=== PATIENT | male | born 1950 | race Caucasian/White ===

== ENCOUNTER 2024-03-02 11:35 | Emergency (ER) | payer MEDICARE, OTHER, SELFPAY ==
[2024-03-02 11:51] VITALS: BP 97/68
[2024-03-02 12:00] VITALS: BMI 26.1
[2024-03-02 12:10] LABS: % Basophils 0.9 % (0-2); % Eosinophils 0.9 % (0-6); % Immature Granulocytes 0.2 % (0-0.5); % Lymphocytes 22.4 % (20.5-51.1); % Monocytes 10.5 % (1.7-9.3); % Neutrophils 65.1 % (42.2-75.2); Absolute Basophils 0.1 10^3/uL (0-0.2); Absolute Eosinophils 0.1 10^3/uL (0-0.7); Absolute Lymphocytes 1.5 10^3/uL (1.2-3.4); Absolute Monocytes 0.7 10^3/uL (0.1-0.6); Absolute Neutrophils 4.3 10^3/uL (1.4-6.5); Hematocrit 48.7 % (39.0-52.0); Hemoglobin 16.7 g/dL (13.0-18.0); Mean Corp Hgb Conc. 34.3 g/dL (33.0-37.0); Mean Corpuscular Hgb 30.8 pg (27.0-31.0); Mean Corpuscular Volume 89.7 fL (80.0-94.0); Mean Platelet Volume 9.2 fL (7.4-10.4); Nucleated Red Blood Cells % 0 % (-); Platelet Count 329 10^3/uL (130-400); Red Blood Cell Count 5.43 10^6/uL (4.70-6.10); Red Cell Dist. Width 12.5 % (11.5-14.5); White Blood Cell Count 6.6 10^3/uL (4.8-10.8)
[2024-03-02 12:23] LABS: ALT (SGPT) 20 U/L (0-50); AST (SGOT) 25 U/L (17-59); Albumin 4.3 g/dl (3.5-5.0); Alkaline Phosphatase 61 U/L (38-126); Blood Urea Nitrogen 21 mg/dl (9-20); Calcium 10.1 mg/dl (8.4-10.2); Carbon Dioxide 28 mmol/L (22-30); Chloride 106 mmol/L (98-107); Estimated Creatinine Clearance 77 ml/min; Glucose 91 mg/dl (70-99); Sodium 144 mmol/L (135-145); Total Bilirubin 0.8 mg/dl (0.2-1.3); Total Protein 7.3 g/dl (6.3-8.2); eGFR > 60.00
[2024-03-02 12:32] LABS: Troponin I < 0.012 ng/ml
[2024-03-02 12:38] VITALS: BP 124/77
--- NOTE | 2024-03-02 12:59 | ED.GENMED ---
History of Present Illness
General
Chief Complaint: Heart Rate Problem
Source: patient
Exam Limitations: none
Time Seen by Provider: 03/02/24 12:09
History of Present Illness
History of Present Illness:
74-year-old male who has a history of A-fib and presents stating that he was in A-fib. The patient states symptoms are about 3 hours ago. He does often check his heart rate on his cardiac phone monitor and this week was in sinus. Patient admits
that he had an ablation many years ago. He has not been on any anticoagulation. Patient denies chest pain but just feels a palpitations. No real shortness of breath. No leg swelling. No leg pain. States in the past he has never had to be
cardioverted and that he would convert with medications or on his own. No other excessive caffeine use. He has 1 alcohol drink a day.
Past History
Past History
ED Past Medical History: Arrthythmia (Atrial fibrillation)
ED Past Surgical History: Cardiac
Social History
Alcohol: Daily (1 beer or wine per day)
Living: with family
Phy Exam
Physical Exam
Physical Exam:
CONSTITUTIONAL Patient alert and oriented to person, place and time. Well-appearing. Vital signs reviewed.
HEAD atraumatic, normocephalic.
EYES eyelids normal to inspection, Extraocular muscles intact, Conjunctiva normal, Sclera normal.
NECK normal range of motion, Trachea midline, no jugular venous distention.
RESPIRATORY CHEST No respiratory distress noted, Chest expansion equal, Bilateral breath sounds clear.
CARDIOVASCULAR irregularly irregular and tachycardic, Heart sounds normal.
BACK normal inspection, no obvious deformities
UPPER EXTREMITY range of motion normal, Motor strength normal, no cyanosis, no edema.
LOWER EXTREMITY range of motion normal, Motor strength normal, no cyanosis, no edema.
NEURO Speech normal, No focal motor deficits, Eryn coma scale 15, Memory normal, Cranial Nerves intact to screening exam.
SKIN skin warm, dry, and normal in color.
Course
Orders/Labs/Results
Orders:
Orders
03/02/24 11:36
EKG [Electrocardiogram (*1)] Urgent
Reason for Study: Palpitations
EKG- Treatment ONCE
03/02/24 12:02
Complete Blood Count/With Diff Urgent
Comprehensive Metabolic Panel Urgent
Troponin I Urgent
03/02/24 12:32
Diltiazem 125 mg/125 ml Nss [Cardizem] 125 mg in 125 ml IV NOW
Initial dose in mg/hr, then titrate:: 5
Titrate to keep:: Heart rate 80-100 bpm
Titrate by mg/hr:: 5 mg/hr
Frequency of titrations (minutes):: 15
Maximum dose in mg/hr:: 15
Diltiazem HCl [Cardizem] 10 mg IV NOW STA
03/02/24 12:42
Electrocardiogram (*1) Urgent
Reason for Study: Palpitations
EKG- Treatment ONCE
Abnormal Lab Results
03/02/24
12:02
Absolute Monos (auto) 0.7 H 10^3/uL
(0.1-0.6)
Monocytes % 10.5 H %
(1.7-9.3)
BUN 21 H mg/dl
(9-20)
03/02/24 12:02
03/02/24 12:02
Vital Signs
Initial and Last Documented VS:
Initial Vital Signs
Temp Pulse Resp Pulse Ox
97.8 F 146 24 96
03/02/24 11:47 03/02/24 11:47 03/02/24 11:47 03/02/24 11:47
Last Documented Vital Signs
Temp Pulse Resp BP Pulse Ox
97.8 F 77 16 102/71 98
03/02/24 11:47 03/02/24 13:00 03/02/24 13:10 03/02/24 13:00 03/02/24 13:10
MDM/Problems Addressed
Differential Diagnosis Includes:
Electrolyte imbalance, anemia, hypothyroidism, atrial fibrillation
MDM/Problems Addressed:
Atrial fibrillation with RVR.
*Pulse Oximetry
Patient hypoxic: no
*EKG
Interpreted by ED Provider?: Yes
Interpretation: abnormal
Rate: tachycardiac
Rhythm: a-fib
[place]: left axis deviation
Ischemia: non-specific ST changes
*Documentation Billing Clerk Interpretation
Rate: tachycardiac
Interpretation: abnormal
Rhythm: a-fib
*Critical Care Note
Total Time (30-74mins, 75-104mins- exclusive of procedures): 35 minutes
Data Reviewed
Source: patient
Further Testing Considered But Not Given:
Considered D-dimer but no PE risk. Starting Eliquis regardless
Patient Management
Escalation/DeEscalation of care consider admission/obs:
Patient spontaneously broke to normal sinus rhythm. Will give him AV rate control as well as Eliquis. He will follow-up with his guide rail cleaner
ED Attending Note
-
Portions of this chart may have been created with voice recognition software.� Occasional wrong word or��sound alike� substitutions may have occurred due to the inherent limitations of voice recognition software.
Discharge Plan
Departure
Patient Disposition: Home (Routine Discharge)
Date of Disposition: 03/02/24
Time of Disposition: 13:19
Patient with high blood pressure during this ER visit?: No
Discharge Problem:
Atrial fibrillation with rapid ventricular response
Instructions: Atrial Fibrillation (DC)
Prescriptions:
New
Eliquis 5 mg tablet
5 mg PO BID Qty: 60 0RF
diltiazem HCl 120 mg capsule,extended release 24 hr
120 mg PO DAILY Qty: 30 0RF
No Action
cyclobenzaprine 10 MG tablet
10 mg PO HSPRN PRN (Reason: muscle spasms) Qty: 7 0RF
hydrocodone-acetaminophen 1 TABLET tablet
1 tab PO Q4HPRN PRN (Reason: severe pain) Qty: 12 0RF
prednisone 20 MG tablet
40 mg PO DAILY Qty: 8 0RF
amoxicillin-pot clavulanate 1 TABLET tablet
1 tab PO BID 10 Days Qty: 20 0RF
Referrals:
Last Walker MD [Family Provider] -
Activity Restrictions/Additional Instructions:
Please see your doctor or guide rail cleaner in the next 3 to 5 days for follow-up and reevaluation. Return immediately for lightheadedness, chest pain, shortness of breath, palpitations or any other concerns.
Interventions
Interventions:
*Risk Screen - Suicide Last Done: 03/02/24 11:47
*General Assessment Last Done: 03/02/24 11:47
*Neglect/Abuse Screening Last Done: 03/02/24 11:47
*ED COVID-19 Vaccine History Last Done: 03/02/24 12:01
ED- Cardiac Assessment Last Done: 03/02/24 12:01
ED- Pulmonary Assessment Last Done: 03/02/24 12:01
Discharge Date and Time
Print Language: MALAWIAN
[2024-03-02 13:00] VITALS: BP 102/71
[2024-03-02] MEDS: ELIQUIS 5 MG PO (13:27)
== END 2024-03-02 13:30 | disposition home or self-care (01) ==
LOC: EMR 11:35
PROVIDERS: EMERGENCY PHYSICIAN Emergency Medicine; FAMILY PHYSICIAN Internal Medicine
DX: I48.91 Unspecified atrial fibrillation (principal)
CPT/HCPCS: 99291; 80053; 84484; 85025; 93005

== ENCOUNTER 2024-03-25 13:02 | Emergency (ER) | payer MEDICARE, OTHER, SELFPAY ==
[2024-03-25 13:11] VITALS: BP 143/79
--- NOTE | 2024-03-25 14:42 | ED.GENMED ---
History of Present Illness
General
Chief Complaint: Musculo-Skeletal Complaint
Time Seen by Provider: 03/25/24 13:21
History of Present Illness
History of Present Illness:
4-year-old male with history of A-fib on Eliquis presents to the emergency department for evaluation of a left hand injury after a minor fall. He tripped and fell forward onto an outstretched hand. He does report that he had some discomfort to the
lateral aspect of the hand. Did strike his chin but denies any headache at this time and is not concerned about any potential head injury.
Past History
Past History
ED Past Medical History: Arrthythmia (Atrial fibrillation)
ED Past Surgical History: Cardiac
Social History
Alcohol: Daily (1 beer or wine per day)
Living: with family
Review of Systems
Review of Systems
Allergies reviewed?: Yes
All Other Systems: ROS reviewed and negative except as documented in HPI and ROS
Phy Exam
Physical Exam
Physical Exam:
GEN: Well appearing, NAD, WDWN
HEENT: Oral mucosa moist, no scleral icterus
Cardiac: Regular rate
Lung: No respiratory distress, no tachypnea
MSK: No gross deformity or injuries, minor abrasions to the palmar aspect of the left hand with no appreciable swelling or bruising
Skin: Good color, no pallor or jaundice, no rashes
Neuro: AO x3, moves all extremities freely, normal speech
Psych: Calm, cooperative
Course
Orders/Labs/Results
Orders:
Orders
03/25/24 13:04
CR Hand - Left Min 3 Views Urgent
Comment:
Reason For Exam: injury/pain
Vital Signs
Initial and Last Documented VS:
Initial Vital Signs
Temp Pulse Resp BP Pulse Ox
97 F 64 18 143/79 99
03/25/24 13:11 03/25/24 13:11 03/25/24 13:11 03/25/24 13:11 03/25/24 13:11
Last Documented Vital Signs
Temp Pulse Resp BP Pulse Ox
97 F 64 18 143/79 99
03/25/24 13:11 03/25/24 13:11 03/25/24 13:11 03/25/24 13:11 03/25/24 13:11
MDM/Problems Addressed
MDM/Problems Addressed:
Left hand x-ray is unremarkable for acute osseous abnormality. Do not see indication for CT of the chest. Patient reports headache or other concerning symptoms
*Critical Care Note
Total Time (30-74mins, 75-104mins- exclusive of procedures): Not Applicable
ED Attending Note
-
Portions of this chart may have been created with voice recognition software.� Occasional wrong word or��sound alike� substitutions may have occurred due to the inherent limitations of voice recognition software.
Discharge Plan
Departure
Patient Disposition: Home (Routine Discharge)
Date of Disposition: 03/25/24
Time of Disposition: 14:42
Patient with high blood pressure during this ER visit?: No
Discharge Problem:
Contusion of hand, left
Instructions: Contusion (DC)
Prescriptions:
No Action
cyclobenzaprine 10 MG tablet
10 mg PO HSPRN PRN (Reason: muscle spasms) Qty: 7 0RF
hydrocodone-acetaminophen 1 TABLET tablet
1 tab PO Q4HPRN PRN (Reason: severe pain) Qty: 12 0RF
prednisone 20 MG tablet
40 mg PO DAILY Qty: 8 0RF
amoxicillin-pot clavulanate 1 TABLET tablet
1 tab PO BID 10 Days Qty: 20 0RF
Eliquis 5 mg tablet
5 mg PO BID Qty: 60 0RF
diltiazem HCl 120 mg capsule,extended release 24 hr
120 mg PO DAILY Qty: 30 0RF
Referrals:
Last Walker MD [Family Provider] -
Interventions
Interventions:
*Risk Screen - Suicide Last Done: 03/25/24 13:11
*General Assessment Last Done: 03/25/24 13:11
*Neglect/Abuse Screening Last Done: 03/25/24 13:11
ED- Fall Risk Assessment Last Done: 03/25/24 13:26
*ED COVID-19 Vaccine History Last Done: 03/25/24 13:26
*Nursing Disposition Last Done: 03/25/24 14:47
ED-Musculoskeletal Assessment Last Done: 03/25/24 13:26
Discharge Date and Time
Discharge Date/Time: 03/25/24 14:58
Print Language: BELARUSIAN
== END 2024-03-25 14:58 | disposition home or self-care (01) ==
LOC: EMR 13:02
PROVIDERS: EMERGENCY PHYSICIAN Student in an Organized Health Care Education/Training Program; FAMILY PHYSICIAN Internal Medicine
DX: S60.222A Contusion of left hand, initial encounter (principal); W01.0XXA Fall on same level from slipping, tripping and stumbling without subsequent striking against object, initial encounter; I48.91 Unspecified atrial fibrillation; Z79.01 Long term (current) use of anticoagulants
CPT/HCPCS: 99283; 73130

== ENCOUNTER → 2025-03-15 12:49 | Outpatient (REF) | payer MEDICARE, OTHER, SELFPAY ==
[2025-03-15 13:34] LABS: Hematocrit 44.0 % (39.0-52.0); Hemoglobin 14.5 g/dL (13.0-18.0); Mean Corp Hgb Conc. 33.0 g/dL (33.0-37.0); Mean Corpuscular Volume 90.5 fL (80.0-94.0); Nucleated Red Blood Cells % 0 % (-); Platelet Count 294 10^3/uL (130-400); Red Cell Dist. Width 12.4 % (11.5-14.5)
[2025-03-15 13:45] LABS: ALT (SGPT) 17 U/L (0-50); AST (SGOT) 21 U/L (17-59); Albumin 4.4 g/dl (3.5-5.0); Alkaline Phosphatase 76 U/L (38-126); Blood Urea Nitrogen 20 mg/dl (9-20); Calcium 9.4 mg/dl (8.4-10.2); Carbon Dioxide 29 mmol/L (22-30); Chloride 100 mmol/L (98-107); Glucose 90 mg/dl (70-99); Potassium 4.4 mmol/L (3.5-5.1); Sodium 133 mmol/L (135-145); Total Protein 7.6 g/dl (6.3-8.2); eGFR > 60.00
== END ==
LOC: REG 12:49
PROVIDERS: ATTENDING PHYSICIAN Physician Assistant; FAMILY PHYSICIAN Internal Medicine
DX: K57.92 Diverticulitis of intestine, part unspecified, without perforation or abscess without bleeding (principal); R10.32 Left lower quadrant pain
CPT/HCPCS: 36415; 80053; 85025

== ENCOUNTER → 2025-03-16 11:19 | Outpatient (REF) | payer MEDICARE, OTHER, SELFPAY | LOC: RAD 11:19 | PROVIDERS: ATTENDING PHYSICIAN Physician Assistant; FAMILY PHYSICIAN Internal Medicine | DX: K57.92 Diverticulitis of intestine, part unspecified, without perforation or abscess without bleeding (principal); R10.32 Left lower quadrant pain | CPT/HCPCS: 74177; Q9967 ==